=== PATIENT | female | born 1980 | race Hispanic/Latino ===

== ENCOUNTER 2024-08-23 13:42 | Emergency (ER) | payer OTHER, BC ==
[~2024-08-23] VITALS: Ht 154.9 cm; Wt 93.0 kg
[2024-08-23 14:32] VITALS: TEMP 97.8
[2024-08-23 14:34] LABS: BASOPHILS # (AUTO) 0.03 K/uL (0.00-0.20); BASOPHILS % (AUTO) 0.4 % (0.0-5.0); EOSINOPHILS # (AUTO) 0.16 K/uL (0.00-0.70); EOSINOPHILS % (AUTO) 2.3 % (0.0-8.0); HEMATOCRIT 38.9 % (36-48); IMMATURE GRANULOCYTE ABSOLUTE 0.03 K/uL (0-1); LYMPHOCYTES # (AUTO) 1.6 K/uL (1.0-4.8); LYMPHOCYTES % (AUTO) 22.6 % (21.0-51.0); MEAN CORPUSCULAR HEMOGLOBIN 30.3 pg (27.0-33.0); MEAN CORPUSCULAR HGB CONC 33.9 g/dL (32.0-36.0); MEAN CORPUSCULAR VOLUME 89.2 fL (79-99); MONOCYTES # (AUTO) 0.4 K/uL (0.1-1.0); MONOCYTES % (AUTO) 5.2 % (3.0-13.0); NEUTROPHILS # (AUTO) 4.9 K/uL (1.8-7.7); NEUTROPHILS % (AUTO) 69.1 % (40.0-77.0); PLATELET COUNT (AUTO) 321 K/uL (130-400); RED BLOOD CELL COUNT(AUTO) 4.36 MIL/uL (4.00-5.50); RED CELL DISTRIBUTION WIDTH 12.1 % (11.0-15.5); WHITE BLOOD COUNT (AUTO) 7.1 K/uL (4.8-10.8)
[2024-08-23 14:48] LABS: CREATININE 0.7 mg/dL (0.5-1.0); POTASSIUM 3.7 mmol/L (3.5-5.1)
[2024-08-23] MEDS: FAMOTIDINE 20MG TAB PO ONE (15:19)
[2024-08-23] MEDS: MAG/ALUM/SIMETH 30 ML UDCUP PO ONE (15:19)
[2024-08-23] MEDS: LIDOCAINE HCL 2% VISCOUS 15 ML UDCUP PO ONE (15:19)
[2024-08-23] MEDS: DICYCLOMINE HCL 10 MG/5 ML ML PO ONE (15:19)
[2024-08-23 17:10] VITALS: BP 128/76; PULSE 57; RESP 16; O2SAT 99
[2024-08-23] MEDS: ketOROlac 60 MG VIAL (30MG/ML) IM ONE (17:34)
== END 2024-08-23 17:13 | disposition home or self-care (01) ==
LOC: EDH 13:42
DX: R07.89 Other chest pain (principal); R73.9 Hyperglycemia, unspecified; E66.9 Obesity, unspecified; Z68.38 Body mass index [BMI] 38.0-38.9, adult
CPT/HCPCS: 99284; 84484; 80048; 85025; 36415; 96372; 93005; J1885